=== PATIENT | female | born 1990 | race Two or more races ===

== ENCOUNTER 2020-08-28 11:43 | Inpatient (IN) ==
[2020-08-28] MEDS ORDERED: MAGNESIUM SULFATE 40 GRAMS IV 40 G/1,000 ML BAG IV ONE (11:53)
[2020-08-28] MEDS ORDERED: DIFLUCAN PO ONE (11:55)
[2020-08-28] MEDS ORDERED: D5 LR 1000 ML 1,000 ML IV ONE (11:55)
[2020-08-28] MEDS ORDERED: D5 1/2 NS 1000 ML 1,000 ML IV ONE (11:59)
[2020-08-28] MEDS ORDERED: D5 1/2 NS 1000 ML 1,000 ML IV SCH (12:00)
[2020-08-28] MEDS ORDERED: DIFLUCAN 200 MG IV PREMIX* 200 MG/100 ML BAG IV SCH (12:00)
[2020-08-28] MEDS ORDERED: LR 1000 ML IV 1,000 ML IV ONE ×2 (12:13→13:09)
[2020-08-28] MEDS: MAGNESIUM SULFATE 40 GRAMS IV 40 G/1,000 ML BAG IV PRN (12:17)
[2020-08-28 12:51] LABS: BILIRUBIN,URINE 1+ (NEGATIVE); BLOOD/HEMOGLOBIN,URINE 4+ (NEGATIVE); GLUCOSE, URINE 3+ (NEGATIVE); KETONES,URINE NEGATIVE (NEGATIVE); LEUKOCYTE ESTERASE ,URINE 3+ (NEGATIVE); NITRITES,URINE NEGATIVE (NEGATIVE); PROTEIN,URINE 2+ (NEGATIVE); UROBILINOGEN,URINE 1+ (NORMAL)
[2020-08-28] MEDS ORDERED: LR 1000 ML IV 1,000 ML IV SCH (13:00)
[2020-08-28 13:12] LABS: APPEARANCE,URINE CLEAR (CLEAR); COLOR,URINE YELLOW (YELLOW); SQUAMOUS EPITHELIAL CELL,UR MODERATE /HPF (NEGATIVE)
[2020-08-28 13:13] LABS: AMORPHOUS SEDIMENT,UR 1+ /HPF (NEGATIVE); BACTERIA,URINE 2+ /HPF (NEGATIVE)
[2020-08-28] MEDS: NS 1000 ML 1,000 ML IV SCH (17:00)
[2020-08-28] MEDS ORDERED: NS 1000 ML 1,000 ML ONE (17:05)
[2020-08-28] MEDS ORDERED: ROCEPHIN 1 GRAM IV PREMIX 1 G/50 ML IV.SOLN. IV ONE (17:05)
[2020-08-28] MEDS: ROCEPHIN 1 GRAM IV PREMIX 1 G/50 ML IV.SOLN. IV SCH (17:15)
[2020-08-28] MEDS ORDERED: NS 500 ML IV 500 ML IV ONE (17:16)
[2020-08-29] MEDS: MAGNESIUM SULFATE 40 GRAMS IV 40 G/1,000 ML BAG IV PRN (01:11)
[2020-08-29] MEDS ORDERED: MAGNESIUM SULFATE 40 GRAMS IV 40 G/1,000 ML BAG IV ONE (01:11)
[2020-08-29] MEDS ORDERED: NS 1000 ML 1,000 ML ONE ×3 (01:51→19:41)
[2020-08-29] MEDS: NS 1000 ML 1,000 ML IV SCH ×3 (01:55→20:45)
[2020-08-29] MEDS ORDERED: CELESTONE SOLUSPAN IM STA (08:28)
[2020-08-29] MEDS ORDERED: CELESTONE SOLUSPAN IM ONE (09:08)
[2020-08-29] MEDS ORDERED: ROCEPHIN 1 GRAM IV PREMIX 1 G/50 ML IV.SOLN. IV ONE (09:08)
[2020-08-29] MEDS: ROCEPHIN 1 GRAM IV PREMIX 1 G/50 ML IV.SOLN. IV SCH (09:25)
[2020-08-29] MEDS: PROCARDIA (PLAIN) CAP 10 MG PO SCH ×3 (11:20→21:18)
[2020-08-30] MEDS ORDERED: NS 1000 ML 1,000 ML ONE ×2 (04:30→17:03)
[2020-08-30] MEDS: NS 1000 ML 1,000 ML IV SCH ×3 (04:40→17:10)
[2020-08-30] MEDS: PROCARDIA (PLAIN) CAP 10 MG PO SCH ×3 (05:28→21:30)
[2020-08-30 06:59] LABS: ALANINE AMINOTRANSFERASE 23 Units/L (12-78); ALBUMIN 1.7 g/dL (3.4-5.0); ALKALINE PHOSPHATASE 259 Units/L (46-116); ASPARTATE AMINO TRANSFERASE 11 Units/L (15-37); BLOOD UREA NITROGEN 13 mg/dL (7-18); CALCIUM 7.2 mg/dL (8.5-10.1); CHLORIDE 104 mmol/L (98-107); COR NA(FOR HYPERGLY) 135 mmol/L (136-145); CREATININE 0.42 mg/dL (0.55-1.02); MAGNESIUM 2.7 mg/dL (1.7-2.9); SODIUM 133 mmol/L (136-145); TOTAL PROTEIN 5.7 g/dL (6.4-8.2); eGFR NON BLACK RACES > 60 (>60)
[2020-08-30 07:02] LABS: CARBON DIOXIDE 14.2 mmol/L (21-32)
[2020-08-30 07:04] LABS: BASOPHILS % (AUTO) 0.7 % (0.2-1.0); EOSINOPHILS % (AUTO) 0.1 % (0.9-2.9); HEMATOCRIT 28.2 % (36.0-47.0); HEMOGLOBIN 8.6 g/dL (12.0-16.0); LYMPHOCYTES % (AUTO) 26.8 % (21.0-51.0); MEAN CORPUSCULAR HEMOGLOBIN 20.7 pg (27.0-34.0); MEAN CORPUSCULAR HGB CONC 30.4 g/dL (33.0-35.0); MEAN CORPUSCULAR VOLUME 67.9 fL (80.0-100.0); MEAN PLATELET VOLUME 9.6 fL (7.4-11.0); MONOCYTES # (AUTO) 0.4 x10^3/uL (0.3-0.8); MONOCYTES % (AUTO) 4.8 % (0.0-13.0); NEUTROPHILS # (AUTO) 5.1 x10^3/uL (2.2-4.8); NEUTROPHILS % (AUTO) 67.6 % (42.0-75.0); PLATELET COUNT 237 X10^3/uL (150.0-450.0); RED BLOOD COUNT 4.15 X10^6/uL (3.5-5.4); WHITE BLOOD COUNT 7.5 X10^3/uL (3.6-10.0)
[2020-08-30] MEDS ORDERED: CELESTONE SOLUSPAN IM ONE ×2 (08:00→09:00)
[2020-08-30] MEDS ORDERED: ROCEPHIN 1 GRAM IV PREMIX 0 G/0 ML IV.SOLN. IV ONE (08:01)
[2020-08-30 08:16] LABS: ANISOCYTOSIS SLIGHT; HYPOCHROMASIA 2+; MICROCYTOSIS 1+; PLATELET MORPHOLOGY COMMENT NORMAL (NORMAL)
[2020-08-30] MEDS: AMPICILLIN VIAL 2 GRAM 2 G in NS 100 ML IV + SPIKE MINIBAG* 100 ML IV SCH ×4 (08:45→21:29)
[2020-08-30] MEDS ORDERED: AMPICILLIN VIAL 2 GRAM ONE ×3 (08:49→20:05)
[2020-08-30] MEDS ORDERED: NS 100 ML IV 100 ML IV ONE ×3 (08:49→20:05)
[2020-08-30] MEDS ORDERED: PROCARDIA (PLAIN) CAP 10 MG PO ONE (09:11)
[2020-08-30] MEDS ORDERED: NS 100 ML IV 100 ML with VENOFER 400 MG IV ONE ×2 (09:32)
[2020-08-30] MEDS ORDERED: NS 500 ML IV 500 ML IV ONE (11:34)
[2020-08-31] MEDS ORDERED: NS 1000 ML 1,000 ML ONE (00:33)
[2020-08-31] MEDS: NS 1000 ML 1,000 ML IV SCH (01:45)
[2020-08-31] MEDS ORDERED: AMPICILLIN VIAL 2 GRAM ONE ×2 (02:06→08:12)
[2020-08-31] MEDS ORDERED: NS 100 ML IV + SPIKE MINIBAG* 100 ML IV ONE (02:06)
[2020-08-31] MEDS: AMPICILLIN VIAL 2 GRAM 2 G in NS 100 ML IV + SPIKE MINIBAG* 100 ML IV SCH ×2 (02:44→08:57)
[2020-08-31] MEDS: PROCARDIA (PLAIN) CAP 10 MG PO SCH (06:04)
[2020-08-31] MEDS ORDERED: NS 100 ML IV 100 ML IV ONE (08:12)
[2020-08-31] MEDS ORDERED: PROCARDIA (PLAIN) CAP 10 MG PO PRN (09:00)
[2020-08-31 10:24] VITALS: BP 123/70
== END 2020-08-31 11:45 | disposition home or self-care (01) | DRG 832 ==
LOC: LD 11:43
PROVIDERS: ADMIT Obstetrics & Gynecology Obstetrics; ATTEND Obstetrics & Gynecology Obstetrics
DX: Z3A.32 32 weeks gestation of pregnancy; O24.419 Gestational diabetes mellitus in pregnancy, unspecified control; O34.211 Maternal care for low transverse scar from previous cesarean delivery; O44.03 Complete placenta previa NOS or without hemorrhage, third trimester; O60.03 Preterm labor without delivery, third trimester

== ENCOUNTER 2020-09-11 11:14 | Inpatient (IN) ==
[2020-09-11] MEDS ORDERED: PITOCIN ONE (11:23)
[2020-09-11] MEDS ORDERED: D5LR 1L W PITOCIN 10 UNITS/L 10 UNITS/1,000 ML BAG IV ONE ×2 (11:24→20:41)
[2020-09-11] MEDS ORDERED: D5 1/2 NS 1L W PITOCIN 20 UNITS/L 20 UNITS/1,000 ML BAG IV ONE (11:24)
[2020-09-11] MEDS ORDERED: D5 1/2 NS 1000 ML 1,000 ML IV ONE (11:24)
[2020-09-11] MEDS ORDERED: BETADINE SOLN ONE (11:24)
[2020-09-11] MEDS ORDERED: NS 100 ML IV 0 ML IV ONE (11:25)
[2020-09-11] MEDS ORDERED: AMPICILLIN VIAL 2 GRAM ONE (11:25)
[2020-09-11] MEDS ORDERED: REGLAN INJ 10 MG VIAL IVP PRN (11:34)
[2020-09-11] MEDS ORDERED: PHENERGAN INJ 25 MG IM PRN ×2 (11:34→23:04)
[2020-09-11] MEDS ORDERED: MORPHINE SULFATE INJ 2 MG INJ IVP PRN (11:34)
[2020-09-11] MEDS ORDERED: DILAUDID INJ IVP PRN (11:34)
[2020-09-11] MEDS ORDERED: PITOCIN IVP ONE (11:34)
[2020-09-11] MEDS ORDERED: D5 1/2 NS 1000 ML 1,000 ML IV SCH (12:00)
[2020-09-11 12:06] LABS: BASOPHILS # (AUTO) 0.2 X10^3/uL (0.0-0.1); BASOPHILS % (AUTO) 1.7 % (0.2-1.0); EOSINOPHILS % (AUTO) 0.3 % (0.9-2.9); HEMATOCRIT 34.1 % (36.0-47.0); HEMOGLOBIN 10.8 g/dL (12.0-16.0); LYMPHOCYTES % (AUTO) 20.2 % (21.0-51.0); MEAN CORPUSCULAR HEMOGLOBIN 22.3 pg (27.0-34.0); MEAN CORPUSCULAR HGB CONC 31.6 g/dL (33.0-35.0); MEAN CORPUSCULAR VOLUME 70.6 fL (80.0-100.0); MEAN PLATELET VOLUME 9.6 fL (7.4-11.0); MONOCYTES # (AUTO) 0.5 x10^3/uL (0.3-0.8); NEUTROPHILS # (AUTO) 7.3 x10^3/uL (2.2-4.8); NEUTROPHILS % (AUTO) 72.8 % (42.0-75.0); PLATELET COUNT 242 X10^3/uL (150.0-450.0); RED BLOOD COUNT 4.83 X10^6/uL (3.5-5.4); RED CELL DISTRIBUTION WIDTH 22.8 % (11.6-16.5)
[2020-09-11 12:17] LABS: BLOOD UREA NITROGEN 11 mg/dL (7-18); CALCIUM 9.2 mg/dL (8.5-10.1); CARBON DIOXIDE 24.8 mmol/L (21-32); CHLORIDE 96 mmol/L (98-107); COR NA(FOR HYPERGLY) 134 mmol/L (136-145); CREATININE 0.48 mg/dL (0.55-1.02); SODIUM 130 mmol/L (136-145); eGFR NON BLACK RACES > 60 (>60)
[2020-09-11 12:19] LABS: ANISOCYTOSIS 2+; HYPOCHROMASIA 1+; MICROCYTOSIS SLIGHT; PLATELET MORPHOLOGY COMMENT NORMAL (NORMAL)
[2020-09-11 12:20] LABS: BILIRUBIN,URINE NEGATIVE (NEGATIVE); BLOOD/HEMOGLOBIN,URINE 3+ (NEGATIVE); GLUCOSE, URINE 4+ (NEGATIVE); KETONES,URINE NEGATIVE (NEGATIVE); LEUKOCYTE ESTERASE ,URINE 3+ (NEGATIVE); NITRITES,URINE NEGATIVE (NEGATIVE); PROTEIN,URINE 2+ (NEGATIVE); UROBILINOGEN,URINE NORMAL (NORMAL)
[2020-09-11 12:40] LABS: APPEARANCE,URINE CLOUDY (CLEAR); COLOR,URINE YELLOW (YELLOW)
[2020-09-11 12:43] LABS: BACTERIA,URINE 2+ /HPF (NEGATIVE); SQUAMOUS EPITHELIAL CELL,UR NUMEROUS /HPF (NEGATIVE)
[2020-09-11] MEDS: D5LR 1L W PITOCIN 10 UNITS/L 10 UNITS/1,000 ML BAG IV PRN ×2 (12:50→22:30)
[2020-09-11] MEDS ORDERED: LR 1000 ML IV 1,000 ML IV ONE (16:08)
[2020-09-11] MEDS ORDERED: FENTANYL INJ 100 mcg ONE ×2 (16:08→16:09)
[2020-09-11] MEDS ORDERED: NAROPIN EPIDURAL 0.2% 100 ML ONE (16:09)
[2020-09-11] MEDS ORDERED: XYLOCAINE 1 % (PLAIN) ONE ×2 (16:54→22:51)
[2020-09-11 18:04] LABS: APPEARANCE,URINE CLEAR (CLEAR); BILIRUBIN,URINE NEGATIVE (NEGATIVE); BLOOD/HEMOGLOBIN,URINE NEGATIVE (NEGATIVE); COLOR,URINE STRAW (YELLOW); GLUCOSE, URINE 4+ (NEGATIVE); KETONES,URINE 3+ (NEGATIVE); LEUKOCYTE ESTERASE ,URINE NEGATIVE (NEGATIVE); NITRITES,URINE NEGATIVE (NEGATIVE); PH,URINE 6.5 (5.0 - 8.0); PROTEIN,URINE NEGATIVE (NEGATIVE); UROBILINOGEN,URINE NORMAL (NORMAL)
[2020-09-11] MEDS ORDERED: D5 1/2 NS 1000 ML 1,000 ML with PITOCIN 20 UNITS IV SCH ×2 (23:45)
[2020-09-11] MEDS ORDERED: MILK OF MAGNESIA PO PRN (23:59)
[2020-09-11] MEDS ORDERED: DERMOPLAST PAIN RELIEF SPRAY TOP PRN (23:59)
[2020-09-11] MEDS ORDERED: TYLENOL 325 MG TAB PO PRN (23:59)
[2020-09-11] MEDS ORDERED: ADACEL or BOOSTRIX TDaP VACCINE IM ONE (23:59)
[2020-09-11] MEDS ORDERED: AMBIEN PO PRN (23:59)
[2020-09-12] MEDS: IVERMECTIN PO SCH (00:51)
[2020-09-12] MEDS: MOTRIN TAB 800 MG PO PRN ×3 (00:51→21:06)
[2020-09-12] MEDS: PLAQUENIL PO SCH ×3 (00:51→20:03)
[2020-09-12] MEDS: PERCOCET TAB 5/325 MG PO PRN ×3 (02:17→16:26)
[2020-09-12 06:10] LABS: HEMATOCRIT 27.5 % (36.0-47.0); HEMOGLOBIN 8.5 g/dL (12.0-16.0)
[2020-09-12] MEDS ORDERED: ADACEL or BOOSTRIX TDaP VACCINE IM ONE (08:24)
[2020-09-12] MEDS: COLACE CAP 100 MG PO SCH ×2 (09:05→20:02)
[2020-09-12] MEDS: ACTOS PO SCH (09:05)
[2020-09-12] MEDS: PRENATAL PLUS PO SCH (09:06)
[2020-09-12] MEDS: GLUCOPHAGE XR 24-HR PO SCH ×2 (09:06→20:03)
[2020-09-12] MEDS ORDERED: NS 100 ML IV 100 ML with VENOFER 400 MG IV NR ×2 (09:43)
[2020-09-12] MEDS ORDERED: LEXAPRO ONE (10:14)
[2020-09-12] MEDS: LEXAPRO PO SCH (11:02)
[2020-09-12] MEDS: HumuLIN R SUBCUT PRN (12:01)
[2020-09-12] MEDS ORDERED: SNACK - Diabetic Appropriate PO SCH (20:00)
[2020-09-12] MEDS ORDERED: KLONOPIN TAB 1 MG PO SCH (21:00)
[2020-09-13 08:11] VITALS: BP 99/56
[2020-09-13] MEDS ORDERED: LEXAPRO ONE (08:47)
[2020-09-13] MEDS ORDERED: NS 100 ML IV 100 ML with VENOFER 400 MG IV NR ×2 (09:00)
[2020-09-13] MEDS: ACTOS PO SCH (09:11)
[2020-09-13] MEDS: COLACE CAP 100 MG PO SCH (09:11)
[2020-09-13] MEDS: GLUCOPHAGE XR 24-HR PO SCH (09:11)
[2020-09-13] MEDS: IVERMECTIN PO SCH (09:12)
[2020-09-13] MEDS: LEXAPRO PO SCH (09:12)
[2020-09-13] MEDS: PRENATAL PLUS PO SCH (09:12)
[2020-09-13] MEDS: PLAQUENIL PO SCH (09:13)
[2020-09-13] MEDS: HumuLIN R SUBCUT PRN (11:50)
== END 2020-09-13 12:54 | disposition home or self-care (01) | DRG 768 ==
LOC: LD 11:14 → MED/SURG 23:56
PROVIDERS: ADMIT Obstetrics & Gynecology Obstetrics; ATTEND Obstetrics & Gynecology Obstetrics